=== PATIENT | female | born 1965 ===

== ENCOUNTER 2019-12-23 18:34 | Emergency (ER) | payer OTHER ==
[~2019-12-23] VITALS: Ht 157.5 cm; Wt 54.4 kg
[~2019-12-23 18:34] MED LIST: ALBIPROI INH; ALBU90OI INH; AMOCLA875 PO; AMOX1XR PO; AMOX500 PO; CEPH500 PO; CODGUAEL PO; CYCL10 PO; DOXY100 PO; HYDACE5 PO; HYDACE5325 PO; HYDGUAL120 PO; LEVSOD75; LORA1 PO; OXYACE5T PO; PROCODE120 PO; PROM25 PO; RXSULTRIDS PO; SULTRIDS PO; TRAM50 PO; Vibramycin100 MG PO; [UNRECOGNIZED DRUG - OTHER]
[2019-12-23] MEDS ORDERED: HYDACE10B PO (19:56)
== END 2019-12-23 20:34 | disposition home or self-care (01) ==
LOC: ER 18:34
DX: T23.201A Burn of second degree of right hand, unspecified site, initial encounter (principal); T23.202A Burn of second degree of left hand, unspecified site, initial encounter; T24.201A Burn of second degree of unspecified site of right lower limb, except ankle and foot, initial encounter; T31.0 Burns involving less than 10% of body surface; F17.200 Nicotine dependence, unspecified, uncomplicated; Z88.6 Allergy status to analgesic agent; W40.8XXA Explosion of other specified explosive materials, initial encounter
CPT/HCPCS: 16020; 96374-59; 96375-59; 99283-25; A9270; J2270; J2405; J3010

== ENCOUNTER 2019-12-25 10:00 | Day surgery (SDC) | payer OTHER ==
[~2019-12-25 10:00] MED LIST changes: +HYDACE10B PO
== END 2019-12-25 11:30 | disposition home or self-care (01) ==
LOC: WOUND 10:00
DX: T24.231D Burn of second degree of right lower leg, subsequent encounter (principal); T23.292D Burn of second degree of multiple sites of left wrist and hand, subsequent encounter; J45.909 Unspecified asthma, uncomplicated; F17.200 Nicotine dependence, unspecified, uncomplicated
CPT/HCPCS: G0463

== ENCOUNTER 2019-12-31 01:14 | Day surgery (SDC) | payer OTHER | END 2019-12-31 23:34 | disposition home or self-care (01) | LOC: WOUND 01:14 | DX: T24.201A Burn of second degree of unspecified site of right lower limb, except ankle and foot, initial encounter (principal); T23.202A Burn of second degree of left hand, unspecified site, initial encounter; T23.272A Burn of second degree of left wrist, initial encounter; J45.909 Unspecified asthma, uncomplicated; F17.200 Nicotine dependence, unspecified, uncomplicated; G89.29 Other chronic pain; M54.9 Dorsalgia, unspecified; Z88.6 Allergy status to analgesic agent; X16.XXXA Contact with hot heating appliances, radiators and pipes, initial encounter ==

== ENCOUNTER 2020-01-07 00:32 | Day surgery (SDC) | payer OTHER | END 2020-01-07 23:01 | disposition home or self-care (01) | LOC: WOUND 00:32 | DX: T24.231D Burn of second degree of right lower leg, subsequent encounter (principal); T23.262D Burn of second degree of back of left hand, subsequent encounter; T23.272D Burn of second degree of left wrist, subsequent encounter; J45.909 Unspecified asthma, uncomplicated; Z88.6 Allergy status to analgesic agent; X08.8XXD Exposure to other specified smoke, fire and flames, subsequent encounter | CPT/HCPCS: G0463 ==

== ENCOUNTER 2021-11-13 09:59 | Emergency (ER) | payer OTHER ==
[~2021-11-13] VITALS: Ht 152.4 cm; Wt 54.4 kg
[2021-11-13] MEDS ORDERED: IBUP600 PO (11:26)
[2021-11-13] MEDS ORDERED: Mupirocin22 GM TOP (11:26)
== END 2021-11-13 12:08 | disposition home or self-care (01) ==
LOC: ER 09:59
DX: S00.83XA Contusion of other part of head, initial encounter (principal); L02.512 Cutaneous abscess of left hand; F17.290 Nicotine dependence, other tobacco product, uncomplicated; Z88.6 Allergy status to analgesic agent; Y04.2XXA Assault by strike against or bumped into by another person, initial encounter
CPT/HCPCS: 70160; 99284-25